=== PATIENT | female | born 1940 | race Caucasian/White ===

== ENCOUNTER 2016-05-12 10:22 | Inpatient (IN) | payer MEDICARE, BC ==
--- NOTE | ~2016-05-12 | DS ---
Discharge Summary [facility] [address] [place]. [address] NAME: HALLEY PAYNE : 42 STATUS : DIS [place] PAT#: [id number] AGE: 75 ADM/REG DATE : 05/12/16 MR#: [id number] REPORT SERV DATE: 05/15/16 DICTATED BY: LAUREN NEUMANN DATE: 05/14/16 REPORT STATUS : Draft TRANSCRIBED BY: MODL DATE: 05/14/16 ADMISSION DATE: 05/12/2016 DISCHARGE DATE: 05/14/2016 DISCHARGE DIAGNOSES: 1. Acute gastroenteritis. 2. Non-anion gap metabolic acidosis due to #1. 3. Coronary artery disease with previous PCI in 1993 and coronary bypass 2004. 4. History of peripheral arterial disease. 5. Exogenous hyperthyroidism. 6. Hypertension. 7. History of supraventricular tachycardia. 8. History of peripheral neuropathy. 9. Osteoarthritis. 10.Prior peptic ulcer disease. 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 12.Previous left axillary lymph node dissection for benign disease. HISTORY: This patient had developed severe diarrhea on the Tuesday prior to admission. 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 She states that in March of this year, she had a cold and that she had some what she thought was flu later that month, but had the same thing and then that completely resolved. Then, on this particular Tuesday prior to this admission, she developed diarrhea going 5-10 times per day. Large watery stool. It was occurring daytime and night time. There was no sign of bright red blood. No sign of melena. She states she had a low-grade temperature of 100.2. She had anorexia with nausea, no vomiting. She went to her PCP's office. Two days prior to admission, she was given Flagyl and Cipro, but did not improve. She came to our emergency room because of her significant diarrhea, and on imaging was noted to have diffuse gastroenteritis type changes on her CT, and she was referred to us for inpatient care. She states she has no pets. Her works with farm animals, specifically cows, but she does not and he has not been sick during this episode in any similar way. They have city water. She has no unusual food or water sources. She had some diffuse abdominal pain with it. As mentioned above, the examination radiographically in the emergency room included a CT scan of the abdomen and pelvis, which revealed distended fluid-filled large and small bowel suggesting severe gastroenteritis. Chest x-ray imaging was normal. She was started on IV fluids in the emergency room and our admitting partner gave her not only fluids, but Levaquin and Flagyl intravenously. Stools had no leukocytes, negative ova and parasites, negative C. diff toxin. The patient had no further fever, and her white blood count was not elevated, so antibiotics were discontinued. On the morning of 05/13/2016, she had a non- anion gap metabolic acidosis with serum bicarbonate down to 19. She was given IV fluids with sodium bicarbonate, and she continued on a clear liquid diet until the evening of Discharge [address] [address] NAME: HALLEY PAYNE : 41 STATUS : DIS [place] PAT#: [id number] AGE: 75 ADM/REG DATE : 05/12/16 MR#: [id number] REPORT SERV DATE: 05/15/16 DICTATED BY: LAUREN NEUMANN DATE: 05/14/16 REPORT STATUS : Draft TRANSCRIBED BY: LUZ DATE: 05/14/16 05/13/2016, when she advanced on to some full liquid diet. Her diarrhea then resolved. Abdominal pain resolved. Her bicarbonate was up to 26. Potassium was at 3.4, related to correction of the acidosis. She is given some oral potassium replacement. She is ambulatory. She was noted to have a TSH suppressed at 0.177 with a free T4 elevated at 1.48. She is currently taking 88 mcg of Synthroid at home even though the pharmacy thought she was on 75 mcg. She states she does have a bottle of the 75 mcg at home, but she had been on the 88 mcg for quite a few months. I told her that currently that dose of 88 mcg of Synthroid was too much for her, so we cut her to the 75 mcg dose, and she will follow up with her PCP and have a recheck of her thyroid studies approximately 4 weeks from now. Two blood cultures drawn here no growth and urine culture, no growth. The urinalysis itself had a small amount of leukocyte esterase, rare bacteria, 37 hyaline casts, occasional calcium oxalate crystals. She had no dysuria. Her procalcitonin on 05/13/2016 was 0.25. DISCHARGE MEDICATIONS: Will include aspirin 81 mg daily, Tenormin 50 mg daily, Lotensin 5 mg daily, Plavix 75 mg daily, gabapentin 100 mg t.i.d., which is a chronic medicine for her, Synthroid 75 mcg daily (she states she still has plenty of these at home), multivitamin once a day, fish oil 2000 mg daily, coenzyme Q 200 mg daily, Tylenol 650 q.6 hours p.r.n. pain, Flonase nasal spray for allergies, Trusopt 2% 1 drop each eye twice a day, vitamin D 1000 units daily, and red yeast once a day. She is currently ambulatory in the room independently on her own. Her and daughter have been here through the hospital stay, and have been updated by me. She was originally admitted as observation status, but when I met her on the morning of 05/13/2016, she had a non-anion gap metabolic acidosis with bicarbonate of 19. She still had significant nausea and really had not been able to take anything orally, so I felt she needed inpatient stay and I also gave her IV fluids with sodium bicarbonate in it to help correct her bicarbonate loss from her diarrhea. I spent 31 minutes today with the patient and with her family with discharge planning. CAROL/LUZ Lauren Neumann M.D. / [id number] CC: Alonzo Jaramillo M.D. Brian Negus, M.D. Discharge Summary [address] [address] NAME: HALLEY PAYNE : 42 STATUS : DIS [place] PAT#: [id number] AGE: 75 ADM/REG DATE : 05/12/16 MR#: [id number] REPORT SERV DATE: 05/15/16 DICTATED BY: LAUREN NEUMANN DATE: 05/14/16 REPORT STATUS : Draft TRANSCRIBED BY: MODL DATE: 05/14/16 Luis Carlos Wagoner M.D.
--- NOTE | ~2016-05-12 | HP ---
History And Physical [place] [id number] [facility] [place]. [address] NAME: HALLEY PAYNE : 42 STATUS : ADM [place] PAT#: [id number] AGE: 75 ADM/REG DATE : 05/12/16 MR#: [id number] REPORT SERV DATE: 05/13/16 DICTATED BY: PHYLICIA POOL DATE: 05/12/16 REPORT STATUS : Draft TRANSCRIBED BY: MODBruno DATE: 05/12/16 DATE OF ADMISSION: 05/12/2016 CHIEF COMPLAINT: Abdominal pain and intractable diarrhea with severe dehydration and weakness for five days. HISTORY OF PRESENT ILLNESS: She is a very pleasant 75-year-old female with history of coronary artery disease, status post prior CABG in 2004; history of hypothyroidism; hypertension; history of peripheral neuropathy; glaucoma; and peripheral vascular disease in that she has been presenting today to the emergency room with symptoms that started on Tuesday with intractable abdominal pain and intractable diarrhea as well as severe dehydration. It is important to note that the patient has not had any sick contacts recently nor she has had any recent hospitalization or recent antibiotics. However, Tuesday, she woke up in the morning with intractable abdominal pain as well as diarrhea. There was no blood, significant nausea, but no vomiting, decreased p.o. intake. She went, on Tuesday, to her primary care provider, Dr. Miller. She saw the nurse practitioner, who prescribed the patient oral antibiotics. She took it, but the diarrhea got progressively worse to the point that she had decided to come to [facility]. There was no hematemesis or melena. No hematochezia. There was no cough or sputum production. There was no increased urinary frequency or urgency. No other complaints. The patient has been presenting to [facility], and after initial evaluation, the Hospitalist Service has been asked for admission for further evaluation and treatment. PAST MEDICAL HISTORY: Significant for coronary artery disease, status post three-vessel bypass in 2014; history of hypertension; hypothyroidism; hyperlipidemia; degenerative joint disease; osteoarthritis; glaucoma; peripheral vascular disease; and peptic ulcer disease. PAST SURGICAL HISTORY: Includes hysterectomy, CABG, partial colectomy, right shoulder surgery, and fatty tumor removal. SOCIAL HISTORY: Denies tobacco, alcohol, or IV drugs. ALLERGIES: THE PATIENT IS ALLERGIC TO CRESTOR, PENICILLIN, NIACIN, CODEINE, BETADINE, LATEX, PRILOSEC, AMOXICILLIN, AND VIOXX. FAMILY HISTORY: Significant for cancer. MEDICATIONS: Medications at home include aspirin, atenolol, Lotensin, vitamin D, Cipro, Plavix, coenzyme Q, dorzolamide ophthalmic solution, Flonase, Neurontin, Synthroid, Flagyl, red yeast, multivitamin, and omega-3 fatty acids. REVIEW OF SYSTEMS: A 14-point review of systems has been obtained and pertinent positives have been listed into the history of present illness. Otherwise, negative except for those underlying above. PHYSICAL EXAMINATION: History And Physical [address] [address] NAME: HALLEY PAYNE : 42 STATUS : ADM [place] PAT#: [id number] AGE: 75 ADM/REG DATE : 05/12/16 MR#: [id number] REPORT SERV DATE: 05/13/16 DICTATED BY: PHYLICIA POOL DATE: 05/12/16 REPORT STATUS : Draft TRANSCRIBED BY: LUZ DATE: 05/12/16 VITAL SIGNS: T-max 99, blood pressure 135/64, heart rate 93, respiratory rate 16, and saturating 97% on room air. GENERAL: She is a very pleasant well-developed, well-nourished woman in no acute distress. She is alert and oriented x3. Nonfocal. She follows all commands appropriately. HEENT: Pupils are equal, round, and reactive to light. Extraocular movements intact. No JVD. No lymphadenopathy. No thyromegaly appreciated. CHEST: Shows bilateral air entry. Clear anteroposterior. No wheezes, clicks, or rhonchi appreciated. CARDIOVASCULAR: She has a regular rate and rhythm. S1, S2 positive. No S3. No S4. No murmurs, rubs, or gallops appreciated. ABDOMEN: Soft, mildly tender throughout, but no guarding, no rebound. EXTREMITIES: No clubbing, cyanosis, or edema. NEUROLOGY: The patient is alert and oriented x3. She is nonfocal. She follows all her commands appropriately. LABORATORY DATA: Labs from today include sodium 137, potassium 4, chloride 103, CO2 of 24, BUN 17, creatinine 1.09, and glucose 161. Her liver function test shows total bilirubin 0.8, alkaline phosphatase 60, ALT 70, AST 16, and lipase 22. Her white count is 6.1, hemoglobin of 15.2, hematocrit of 42.5, and platelets of 239. Her UA is positive for small leukocyte esterase and rare bacteria. Urine cultures are pending. Blood cultures are pending. There is a CT scan of the abdomen and pelvis performed in the emergency room without contrast that shows distended fluid-filled large and small bowel suggesting possible severe gastroenteritis. ASSESSMENT AND PLAN: This is a very pleasant 75 years old female with intractable diarrhea and abdominal pain. 1. Likely severe gastroenteritis. 2. Dehydration with mild acute kidney injury. 3. History of coronary artery disease, status post coronary artery bypass grafting. 4. History of hypertension. 5. History of hypothyroidism. 6. Hyperlipidemia. 7. Possible urinary tract infection. The patient is going to be admitted to Hospitalist Service. We will provide her with vigorous IV hydration, keep her on clear liquids for right now, start her on antibiotics with Levaquin and Flagyl, check all her stools. Pepcid IV b.i.d. Consult GI, Dr. Wagoner, for further recommendation and panculture as well. 8. Dehydration with mild acute kidney injury, vigorous IV hydration, UA and urine culture, follow labs very closely. 9. History of coronary artery disease,will continue her home medication. 10.History of hypertension, will continue her home medication of p.r.n. hydralazine as needed. 11.History of hypothyroidism, will continue her home medications and check a TSH and a free T4. We are going to provide reasonable pain and nausea control as well as GI and DVT prophylaxis. That has been discussed extensively with the patient. All the questions have been answered in full. Further workup and recommendation pending above. History And Physical [address] [address] NAME: HALLEY PAYNE : 42 STATUS : ADM [place] PAT#: [id number] AGE: 75 ADM/REG DATE : 05/12/16 MR#: [id number] REPORT SERV DATE: 05/13/16 DICTATED BY: PHYLICIA POOL DATE: 05/12/16 REPORT STATUS : Draft TRANSCRIBED BY: LUZ DATE: 05/12/16 CF/LUZ Phylicia Pool M.D. / [id number]
[~2016-05-12 10:22] MED LIST: ACET500CAP PO; ASAB PO; ATEN25 PO; ATEN50 PO; B12250T PO; BACTRONASA NAS; CALTRA600D PO; CENTRUM PO; CO Q-10100 MG PO; CO Q-10200 MG PO; CYANO1000T PO; DORZOLAMIDE2 % OP; DORZOLAMIDE2 % OPH; FISH OIL1200 MG PO; FISH-EPA1000 MG PO; K-99 PO; LEVOTHYROXIN100 MCG PO; LEVOTHYROXIN75 MCG PO; LOTE20 PO; LOTE5 PO; LUMIGAN OPH; MCZ125 PO; MCZ25 PO; MULTIVIT/MIN PO; NEUR100 PO; NIACIN 500 PO; OTC ACID REDUCER PO; PLAVIX PO; POT GLUCONAT595 M1 OR; POTASSIUM GLUCONATE PO; POTASSIUM PO; POTASSIUM95 MG PO; RED YEAST RICE PO; VICODINTAB PO; VITAMIN D2000 UNIT PO; ZANTAC 150 PO; ZANTAC150 MG PO; ZETIA PO
[2016-05-12 10:58] LABS: BASOPHILS 0.2 %; BASOPHILS ABSOLUTE 0.01 10/3/uL (0.0-0.16); EOSINOPHILS 5.4 %; EOSINOPHILS ABSOLUTE 0.33 10/3/uL (0.0-0.53); ER CBC TAT 0 Hrs 07 MinsNP; HEMATOCRIT 42.5 % (36.0-48.0); HEMOGLOBIN 15.2 g/dL (12.0-16.0); IMMATURE GRANULOCYTES 0.2 %; IMMATURE GRANULOCYTES ABSOLUTE 0.01 10/3/uL (0.0-0.11); LYMPHOCYTES 14.7 %; MANUAL DIFF NO %; MEAN CORPUS HGB CONC 35.8 g/dL (32.0-36.0); MEAN CORPUSCULAR HEMOGLOB 31.3 pg (26.0-34.0); MEAN CORPUSCULAR VOLUME 87.4 fL (80-100); MEAN PLATELET VOLUME 9.9 fL (9.2-13.0); MONOCYTES 5.1 %; MONOCYTES ABSOLUTE 0.31 10/3/uL (0.21-1.20); NEUTROPHILS 74.4 %; NEUTROPHILS ABSOLUTE 4.56 10/3/uL (2.02-8.40); PLATELET COUNT 239 10/3/uL (150-400); RBC DISTRIBUTION WIDTH 12.6 % (12.0-16.0); RED CELL COUNT 4.86 10/6/uL (4.0-5.6); WHITE BLOOD CELLS 6.1 10/3/uL (4.5-10.5)
[2016-05-12 11:08] LABS: ASCORBIC ACID (UR NOT ORDER) NEG (NEG); BILIRUBIN, URINE NEGATIVE (NEG); ER URINALYSIS TAT 0 Hrs 14 Mins; KETONE, URINE 20 MG/DL (NEG); LEUKOCYTE ESTERASE(NOT OR SMALL (NEG); NITRITE (URINE) NEG (NEG); WBC (NOT ORDERED) (RFLEX) < 1 (0-5)
[2016-05-12 11:13] LABS: ALBUMIN 3.8 G/DL (3.5-5.0); ALKALINE PHOSPHATASE 67 U/L (45-117); BUN (BLOOD UREA NITROGEN) 17 MG/DL (6-23); CALCIUM, SERUM 9.4 MG/DL (8.5-10.4); CHLORIDE, SERUM 103 MMOL/L (96-112); CO2 (CARBON DIOXIDE) 24 MMOL/L (24-34); CREATININE 1.09 MG/DL (0.55-1.02); GFR AFRICAN AMERICAN 58 ML/MIN (>=60); GFR NON AFRICAN AMERICAN 50 ML/MIN (>=60); SGOT(AST) 18 U/L (5-40); SGPT(ALT) 19 U/L (5-65); TOTAL BILIRUBIN 0.8 MG/DL (0-1.2); TOTAL PROTEIN 7.7 G/DL (6.0-8.5)
[2016-05-12 11:14] LABS: GLOBULIN 3.9 G/DL (2.5-4.1); GLUCOSE, SERUM 161 MG/DL (60-99); SODIUM, SERUM 137 MMOL/L (135-148)
[2016-05-12] MEDS ORDERED: ASAB PO (15:02)
[2016-05-12] MEDS ORDERED: CO Q-10200 MG PO (15:03)
[2016-05-12] MEDS ORDERED: FISH-EPA1000 MG PO (15:03)
[2016-05-12] MEDS ORDERED: MULTIVITAMI1 PO (15:04)
[2016-05-12] MEDS ORDERED: RED YEAS1 PO (15:04)
[2016-05-12 15:05] LABS: ALBUMIN 3.4 G/DL (3.5-5.0); DIRECT BILIRUBIN 0.2 MG/DL (0.0-0.4); INDIRECT BILIRUBIN(NOT ORDER) 0.6 MG/DL (0.1-0.9); TOTAL BILIRUBIN 0.8 MG/DL (0-1.2); TOTAL PROTEIN 6.9 G/DL (6.0-8.5)
[2016-05-12] MEDS ORDERED: VITAMIN D1000 UNI1 PO (15:05)
[2016-05-12] MEDS ORDERED: SYN075 PO (15:05)
[2016-05-12] MEDS ORDERED: FLONASE NAS (15:05)
[2016-05-12] MEDS ORDERED: ATEN50 PO (15:08)
[2016-05-12] MEDS ORDERED: LOTE5 PO (15:08)
[2016-05-12] MEDS ORDERED: PLAVIX PO (15:09)
[2016-05-12] MEDS ORDERED: NEUR100 PO (15:09)
[2016-05-12] MEDS ORDERED: TRUSOPT2 % OPH (15:10)
[2016-05-12] MEDS ORDERED: CIP5 PO (15:10)
[2016-05-12] MEDS ORDERED: FLAG500TAB PO (15:12)
[2016-05-13 02:04] LABS: INTERNATIONAL NORMAL RATI 1.2 UNITS (-); PARTIAL THROMBO TIME 32.8 SEC (22.5-37.2); PROTIME (NOT ORD) 14.9 SEC (12.0-14.5)
[2016-05-13 02:37] LABS: FREE T4 1.48 NG/DL (0.76-1.46); PHOSPHORUS, SERUM 2.5 MG/DL (2.5-4.5); ULTRASENSITIVE TSH 0.177 MCIU/ML (0.358-3.740)
[2016-05-13 02:44] LABS: FOLATE 64.2 NG/ML (>5.2)
[2016-05-13 03:22] LABS: PROCALCITONIN 0.25 ng/mL (<0.5)
[2016-05-13 07:34] LABS: A/G RATIO 0.9 (0.7-1.9); ALBUMIN 2.9 G/DL (3.5-5.0); ALKALINE PHOSPHATASE 55 U/L (45-117); CHLORIDE, SERUM 113 MMOL/L (96-112); CREATININE 0.71 MG/DL (0.55-1.02); GFR AFRICAN AMERICAN 97 ML/MIN (>=60); GFR NON AFRICAN AMERICAN 84 ML/MIN (>=60); GLOBULIN 3.3 G/DL (2.5-4.1); SGOT(AST) 21 U/L (5-40); SGPT(ALT) 18 U/L (5-65); TOTAL BILIRUBIN 0.4 MG/DL (0-1.2); TOTAL PROTEIN 6.2 G/DL (6.0-8.5)
[2016-05-13 07:35] LABS: BUN (BLOOD UREA NITROGEN) 10 MG/DL (6-23); CALCIUM, SERUM 8.3 MG/DL (8.5-10.4); CO2 (CARBON DIOXIDE) 19 MMOL/L (24-34); GLUCOSE, SERUM 86 MG/DL (60-99); SODIUM, SERUM 144 MMOL/L (135-148)
[2016-05-14 06:15] LABS: BASOPHILS 0.3 %; BASOPHILS ABSOLUTE 0.01 10/3/uL (0.0-0.16); EOSINOPHILS 12.1 %; EOSINOPHILS ABSOLUTE 0.44 10/3/uL (0.0-0.53); HEMATOCRIT 35.1 % (36.0-48.0); HEMOGLOBIN 12.7 g/dL (12.0-16.0); IMMATURE GRANULOCYTES 0.3 %; IMMATURE GRANULOCYTES ABSOLUTE 0.01 10/3/uL (0.0-0.11); LYMPHOCYTES 31.1 %; LYMPHOCYTES ABSOLUTE 1.13 10/3/uL (0.67-4.30); MANUAL DIFF NO %; MEAN CORPUS HGB CONC 36.2 g/dL (32.0-36.0); MEAN CORPUSCULAR HEMOGLOB 31.8 pg (26.0-34.0); MEAN CORPUSCULAR VOLUME 87.8 fL (80-100); MONOCYTES 12.9 %; MONOCYTES ABSOLUTE 0.47 10/3/uL (0.21-1.20); NEUTROPHILS 43.3 %; NEUTROPHILS ABSOLUTE 1.57 10/3/uL (2.02-8.40); PLATELET COUNT 175 10/3/uL (150-400); RBC DISTRIBUTION WIDTH 12.5 % (12.0-16.0); WHITE BLOOD CELLS 3.6 10/3/uL (4.5-10.5)
[2016-05-14 06:26] LABS: BUN (BLOOD UREA NITROGEN) 5 MG/DL (6-23); CALCIUM, SERUM 8.8 MG/DL (8.5-10.4); CHLORIDE, SERUM 111 MMOL/L (96-112); CO2 (CARBON DIOXIDE) 26 MMOL/L (24-34); CREATININE 0.71 MG/DL (0.55-1.02); GFR AFRICAN AMERICAN 97 ML/MIN (>=60); GFR NON AFRICAN AMERICAN 84 ML/MIN (>=60); GLUCOSE, SERUM 104 MG/DL (60-99); POTASSIUM, SERUM 3.4 MMOL/L (3.5-5.3); SODIUM, SERUM 146 MMOL/L (135-148)
[2016-05-14] MEDS ORDERED: T PO (08:17)
[2016-07-15] MEDS ORDERED: ATEN25 PO (11:59)
== END 2016-05-14 11:14 | disposition home or self-care (01) | DRG 392 ==
LOC: ER 10:22 → 5NO 22:28
PROVIDERS: Emergency Medicine; Hospitalist; Internal Medicine
DX: K52.9 Noninfective gastroenteritis and colitis, unspecified (principal); E87.2 Acidosis; I25.10 Atherosclerotic heart disease of native coronary artery without angina pectoris; E03.9 Hypothyroidism, unspecified; I10 Essential (primary) hypertension; I73.9 Peripheral vascular disease, unspecified; E78.5 Hyperlipidemia, unspecified; M19.90 Unspecified osteoarthritis, unspecified site; H40.9 Unspecified glaucoma; Z90.710 Acquired absence of both cervix and uterus; Z98.51 Tubal ligation status; Z88.0 Allergy status to penicillin; Z88.5 Allergy status to narcotic agent; Z95.1 Presence of aortocoronary bypass graft; Z88.1 Allergy status to other antibiotic agents; Z91.040 Latex allergy status; E86.0 Dehydration; Z79.82 Long term (current) use of aspirin; Z79.02 Long term (current) use of antithrombotics/antiplatelets
CPT/HCPCS: 71010; 74177; 80048; 80053; 80076; 81001; 82150; 82607; 82746; 83036; 83605; 83615; 83690; 83735; 84100; 84145; 84439; 84443; 85025; 85610; 85730; 87040; 87086; 87328; 87329; 87493; 87493-59; 89055; 93005; 96365; 96366; 96368; 99285; A9270-GY; J1956; Q9967

== ENCOUNTER 2016-07-27 07:24 | Day surgery (SDC) | payer MEDICARE, BC ==
--- NOTE | ~2016-07-27 | EGD ---
EGD REPORT [facility] [address] [place] [place] [address] NAME: HALLEY PAYNE : 42 STATUS : REG [facility]#: [id number] AGE: 76 ADM/REG DATE : 07/27/16 MR#: [id number] REPORT SERV DATE: 07/27/16 DICTATED BY: SUNSHINE ANAND DATE: 07/27/16 REPORT STATUS : Draft TRANSCRIBED BY: [facility] DATE: 07/27/16 Endoscopy Center Patient Name: Halley Payne Date of : 1940 Attending MD: SUNSHINE ANAND MD Procedure Date No Time: 07/27/2016 Procedure: Colonoscopy Indications: Abdominal pain in the left lower quadrant, Change in bowel habits Referring MD: HECTOR SANTILLAN Medicines: as per anesthesia Complications: No immediate complications. Procedure: Pre-Anesthesia Assessment: - ASA Grade Assessment: IV - A patient with severe systemic disease that is a constant threat to life. After I obtained informed consent, the scope was passed under direct vision. Throughout the procedure, the patient's blood pressure, pulse, and oxygen saturations were monitored continuously. The [facility] [id number] was introduced through the anus and advanced to the cecum, identified by appendiceal orifice and ileocecal valve. The colonoscopy was somewhat difficult due to restricted mobility of the colon, significant looping and a tortuous colon. The patient tolerated the procedure. The quality of the bowel preparation was adequate to identify polyps. Findings: The perianal and digital rectal examinations were normal. Multiple small and large-mouthed diverticula were found in the sigmoid colon and in the descending colon. Internal hemorrhoids were found during endoscopy and were mild. Impression: - Diverticulosis in the sigmoid colon and in the descending colon. - Internal hemorrhoids. Recommendation: - Continue present medications. Procedure Code(s): --- Professional --- 51282, Colonoscopy, flexible, proximal to splenic flexure; diagnostic, with or without collection of specimen(s) by brushing or washing, with or without colon decompression (separate procedure) EGD REPORT [facility] [address] [place]. [address] NAME: HALLEY PAYNE : 42 STATUS : REG [facility] PAT#: [id number] AGE: 76 ADM/REG DATE : 07/27/16 MR#: [id number] REPORT SERV DATE: 07/27/16 DICTATED BY: SUNSHINE ANAND DATE: 07/27/16 REPORT STATUS : Draft TRANSCRIBED BY: [employer] DATE: 07/27/16 Diagnosis Code(s): --- Professional --- K64.8, Other hemorrhoids K57.30, Diverticulosis of large intestine without perforation or abscess without bleeding R10.32, Left lower quadrant pain R19.4, Change in bowel habit CPT copyright 2013 [employer]. All rights reserved. The codes documented in this report are preliminary and upon restaurant cook review may be revised to meet current compliance requirements. SUNSHINE ANAND MD 07/27/2016 9:50 AM This report has been signed electronically. Number of Addenda: 0 Note Initiated On: 07/27/2016 9:09 AM Scope Withdrawal Time 0 hours 6 minutes 8 seconds [address] [place] [address]
[~2016-07-27 07:24] MED LIST changes: +CIP5 PO; +FLAG500TAB PO; +FLONASE NAS; +MULTIVITAMI1 PO; +RED YEAS1 PO; +SYN075 PO; +T PO; +TRUSOPT2 % OPH; +VITAMIN D1000 UNI1 PO
== END 2016-07-27 23:59 | disposition home or self-care (01) ==
LOC: DMU 07:24
PROVIDERS: Internal Medicine Gastroenterology
PROC: 0DJD8ZZ Inspection of Lower Intestinal Tract, Via Natural or Artificial Opening Endoscopic (ICD-10-PCS; principal; 2016-07-27 09:00)
DX: K64.8 Other hemorrhoids (principal); K57.30 Diverticulosis of large intestine without perforation or abscess without bleeding; I25.10 Atherosclerotic heart disease of native coronary artery without angina pectoris; E78.00 Pure hypercholesterolemia, unspecified; M19.90 Unspecified osteoarthritis, unspecified site; K21.9 Gastro-esophageal reflux disease without esophagitis; E03.9 Hypothyroidism, unspecified; K44.9 Diaphragmatic hernia without obstruction or gangrene; I10 Essential (primary) hypertension; K58.9 Irritable bowel syndrome, unspecified; I73.9 Peripheral vascular disease, unspecified; Z95.1 Presence of aortocoronary bypass graft; Z91.040 Latex allergy status; Z88.5 Allergy status to narcotic agent; Z88.0 Allergy status to penicillin; Z88.8 Allergy status to other drugs, medicaments and biological substances; Z90.89 Acquired absence of other organs; Z90.49 Acquired absence of other specified parts of digestive tract; Z90.710 Acquired absence of both cervix and uterus; Z98.41 Cataract extraction status, right eye; Z98.42 Cataract extraction status, left eye